=== PATIENT | female | born 1930 | race Caucasian/White ===

== ENCOUNTER 2022-04-23 07:19 | Inpatient (IN) | payer MEDICARE ==
[2022-04-23 08:19] LABS: #Lymphocytes 1.1 thou/uL (1.20-3.40); #Monocytes 2.4 thou/uL (0.11-0.59); #Neutrophils 15.2 thou/uL (1.40-6.50); %Eosinophils 0.1 % (0.0-10.0); %Lymphocytes 5.8 % (21.0-51.0); %Monocytes 12.9 % (0.0-10.0); %Neutrophils 81.1 % (42.0-75.0); Mean Corpuscular HGB CONC 30.3 g/dL (32.0-36.0); Mean Corpuscular Hemoglobin 30.2 pg (27.0-31.0); Mean Corpuscular Volume 99.7 fL (78.0-98.0); Mean Platelet Volume 7.9 fL (7.4-10.4); Platelet Count 247 thou/uL (130-400); RBC Distribution Width 12.6 % (11.5-14.5); Red Blood Cell (RBC) Count 5.63 mill/uL (4.20-5.40); White Blood Cell (WBC) Count 18.7 thou/uL (4.8-10.8)
[2022-04-23] MEDS ORDERED: Piperacillin/Tazobactam 3.375 GM VIAL ONE (08:30)
[2022-04-23 08:38] LABS: ALT (SGPT) 23 U/L (8-55); AST (SGOT) 23 U/L (5-34); Albumin 3.8 g/dL (3.4-4.8); Alkaline Phosphatase 118 U/L (40-110); Anion Gap 16 mmol/L (10-20); BUN (Urea Nitrogen) 25 mg/dL (9.8-20.1); Bilirubin, Total 3.2 mg/dL (0.2-1.2); CK (CPK) 841 U/L (29-168); Calc. Creatinine Clearance 0 mL/min (70-130); Calcium 9.3 mg/dL (7.8-10.44); Carbon Dioxide 25 mmol/L (23-31); Chloride 100 mmol/L (98-107); Globulin 3.6 g/dL (2.4-3.5); Glucose 144 mg/dL (83-110); Potassium 3.6 mmol/L (3.5-5.1); Protein, Total 7.4 g/dL (5.8-8.1); Sodium 137 mmol/L (136-145)
[2022-04-23] MEDS ORDERED: VANCOMYCIN 1.25 GM/250 ML BAG 1.25 GM in Premix Bag 1 BAG IVPB SCH (08:45)
[2022-04-23 08:54] LABS: INR-International Normal Ratio 1.3; Prothrombin Time 16.8 sec (12.0-14.7)
[2022-04-23 08:55] LABS: PTT 39.7 sec (22.9-36.1)
[2022-04-23] MEDS ORDERED: Boostrix 0.5 ML (Tdap) VIAL ONE (09:58)
[2022-04-23] MEDS ORDERED: Vancomycin 1 GM in Premix Bag 1 BAG IVPB SCH (10:15)
[2022-04-23] MEDS ORDERED: Bisacodyl 10 MG SUPP PR PRN (10:21)
[2022-04-23] MEDS ORDERED: Acetaminophen 325 MG TAB PO PRN (10:21)
[2022-04-23] MEDS ORDERED: Senokot S 8.6-50 MG TAB PO PRN (10:21)
[2022-04-23] MEDS ORDERED: Electrolyte Replacement Protocol 1 EACH FS SCH (10:45)
[2022-04-23 11:39] LABS: Bilirubin 1+ (Negative); Blood, Urine 2+ (Negative); Clarity Turbid (Clear); Glucose, Urine (Dipstick) 50 mg/dL (Negative); Ketone, Urine 10 mg/dL (Negative); Leukocyte 500 Leu/uL (Negative); Nitrite Negative (Negative); Protein, Urine (Dipstick) 300 mg/dL (Neg-Trace); Specific Gravity, Urine 1.037 (1.002-1.036); Squamous Epithelial 0-3 HPF (0-3); Urobilinogen Normal mg/dL (Less than 2); WBC/HPF Greater than 50 HPF (0-3); pH, Urine 6.5 (5.0-9.0)
[2022-04-23 11:40] LABS: Bacteria/HPF 1+ HPF (None Seen)
[2022-04-23] MEDS ORDERED: Multivitamins, Adult 10 ML, Folic Acid 1 MG, Thiamine HCl 100 MG in Dextrose 5 %-0.45 %... IV SCH (12:00)
[2022-04-23 12:52] VITALS: BMI 36.5
[2022-04-23] MEDS ORDERED: Aspirin 81 mg Enteric Coated Tablet PO SCH (13:00)
[2022-04-23] MEDS ORDERED: metroNIDAZOLE 500 MG in Premix Bag 1 BAG IVPB SCH (14:00)
[2022-04-23] MEDS: metroNIDAZOLE 500 MG in Premix Bag 1 BAG IVPB SCH ×2 (16:46→23:04)
[2022-04-23] MEDS: NS 0.9% w/ 20 MEQ KCL 1,000 ML/1,000 ML BAG IV SCH (19:15)
[2022-04-24] MEDS: NS 0.9% w/ 20 MEQ KCL 1,000 ML/1,000 ML BAG IV SCH ×2 (02:57→12:06)
[2022-04-24 05:10] LABS: #Lymphocytes 1.3 thou/uL (1.20-3.40); #Neutrophils 10.6 thou/uL (1.40-6.50); %Eosinophils 0.2 % (0.0-10.0); %Lymphocytes 9.2 % (21.0-51.0); %Monocytes 14.3 % (0.0-10.0); %Neutrophils 76.2 % (42.0-75.0); Hemoglobin 14.2 g/dL (12.0-16.0); Mean Corpuscular HGB CONC 32.1 g/dL (32.0-36.0); Mean Corpuscular Volume 99.7 fL (78.0-98.0); Mean Platelet Volume 7.7 fL (7.4-10.4); Platelet Count 213 thou/uL (130-400); RBC Distribution Width 12.4 % (11.5-14.5); Red Blood Cell (RBC) Count 4.44 mill/uL (4.20-5.40); White Blood Cell (WBC) Count 13.9 thou/uL (4.8-10.8)
[2022-04-24 05:43] LABS: ALT (SGPT) 32 U/L (8-55); AST (SGOT) 30 U/L (5-34); Albumin 2.8 g/dL (3.4-4.8); Alkaline Phosphatase 113 U/L (40-110); Anion Gap 12 mmol/L (10-20); BUN (Urea Nitrogen) 23 mg/dL (9.8-20.1); Bilirubin, Total 1.7 mg/dL (0.2-1.2); CK (CPK) 513 U/L (29-168); Calc. Creatinine Clearance 62 mL/min (70-130); Calcium 7.9 mg/dL (7.8-10.44); Carbon Dioxide 22 mmol/L (23-31); Chloride 108 mmol/L (98-107); Globulin 2.8 g/dL (2.4-3.5); Glucose 82 mg/dL (83-110); Magnesium 1.9 mg/dL (1.6-2.6); Potassium 3.7 mmol/L (3.5-5.1); Protein, Total 5.6 g/dL (5.8-8.1); Sodium 138 mmol/L (136-145)
[2022-04-24 06:23] LABS: Phosphorus 1.6 mg/dL (2.3-4.7)
[2022-04-24] MEDS: Acetaminophen 325 MG TAB PO PRN (06:39)
[2022-04-24] MEDS ORDERED: Magnesium 2 GM/50 ML(in water) 2 GM in Premix Bag 1 BAG IVPB SCH (09:00)
[2022-04-24] MEDS ORDERED: PHOS-NAK 1 PKT PACK PO SCH (10:00)
[2022-04-24] MEDS: Heparin 5,000 UNITS/ML VIAL SC SCH ×2 (10:42→20:15)
[2022-04-24] MEDS: Aspirin 81 mg Enteric Coated Tablet PO SCH (10:42)
[2022-04-24] MEDS: Saccharomyces boulardii 250 MG CAP PO SCH (10:43)
[2022-04-24] MEDS: PHOS-NAK 1 PKT PACK PO SCH ×2 (10:43→14:56)
[2022-04-24] MEDS: Vancomycin HCl 500 MG in Sodium Chloride 0.9% 100 ML IVPB SCH (12:07)
[2022-04-24] MEDS: metroNIDAZOLE 500 MG in Premix Bag 1 BAG IVPB SCH ×3 (12:07→23:54)
[2022-04-25 04:14] LABS: #Eosinphils 0.1 thou/uL (0.0-0.7); #Lymphocytes 1.2 thou/uL (1.20-3.40); #Monocytes 1.4 thou/uL (0.11-0.59); #Neutrophils 7.3 thou/uL (1.40-6.50); %Basophils 0.1 % (0.0-1.0); %Eosinophils 1.2 % (0.0-10.0); %Lymphocytes 11.7 % (21.0-51.0); %Monocytes 14.2 % (0.0-10.0); %Neutrophils 72.7 % (42.0-75.0); Hemoglobin 13.5 g/dL (12.0-16.0); Mean Corpuscular HGB CONC 33.6 g/dL (32.0-36.0); Mean Corpuscular Hemoglobin 32.6 pg (27.0-31.0); Mean Platelet Volume 7.3 fL (7.4-10.4); Platelet Count 229 thou/uL (130-400); RBC Distribution Width 12.4 % (11.5-14.5); Red Blood Cell (RBC) Count 4.14 mill/uL (4.20-5.40)
[2022-04-25 04:39] LABS: ALT (SGPT) 45 U/L (8-55); AST (SGOT) 34 U/L (5-34); Albumin 2.7 g/dL (3.4-4.8); Alkaline Phosphatase 158 U/L (40-110); Anion Gap 11 mmol/L (10-20); BUN (Urea Nitrogen) 14 mg/dL (9.8-20.1); Bilirubin, Total 1.3 mg/dL (0.2-1.2); Calc. Creatinine Clearance 72 mL/min (70-130); Carbon Dioxide 20 mmol/L (23-31); Chloride 110 mmol/L (98-107); Globulin 2.6 g/dL (2.4-3.5); Glucose 94 mg/dL (83-110); Potassium 3.8 mmol/L (3.5-5.1); Protein, Total 5.3 g/dL (5.8-8.1); Sodium 137 mmol/L (136-145)
[2022-04-25] MEDS ORDERED: Metoprolol Tartrate 50 MG TAB PO SCH (05:00)
[2022-04-25 05:18] LABS: Magnesium 2.1 mg/dL (1.6-2.6)
[2022-04-25] MEDS: Lidocaine 5% Patch TD SCH (08:51)
[2022-04-25] MEDS: Aspirin 81 mg Enteric Coated Tablet PO SCH (08:51)
[2022-04-25] MEDS: Heparin 5,000 UNITS/ML VIAL SC SCH (08:51)
[2022-04-25] MEDS: Acetaminophen 325 MG TAB PO PRN ×2 (08:51→21:57)
[2022-04-25] MEDS: Saccharomyces boulardii 250 MG CAP PO SCH (08:52)
[2022-04-25] MEDS: metroNIDAZOLE 500 MG in Premix Bag 1 BAG IVPB SCH ×2 (10:12→16:34)
[2022-04-25] MEDS: Vancomycin HCl 500 MG in Sodium Chloride 0.9% 100 ML IVPB SCH (11:16)
[2022-04-25] MEDS: Vancomycin 1 GM in Premix Bag 1 BAG IVPB SCH (11:17)
[2022-04-25] MEDS: Enoxaparin Sodium 40 MG/0.4 ML SYRINGE SC SCH (21:56)
[2022-04-25] MEDS: Transdermal Patch Removal TOP SCH (21:58)
[2022-04-25] MEDS: Metoprolol Tartrate 50 MG TAB PO SCH (21:58)
[2022-04-26] MEDS: metroNIDAZOLE 500 MG in Premix Bag 1 BAG IVPB SCH ×4 (00:51→23:46)
[2022-04-26] MEDS: Saccharomyces boulardii 250 MG CAP PO SCH (08:44)
[2022-04-26] MEDS: Metoprolol Tartrate 50 MG TAB PO SCH ×2 (08:44→20:25)
[2022-04-26] MEDS: Aspirin 81 mg Enteric Coated Tablet PO SCH (08:44)
[2022-04-26] MEDS: Vancomycin 1 GM in Premix Bag 1 BAG IVPB SCH (09:51)
[2022-04-26] MEDS: Lidocaine 5% Patch TD SCH (09:51)
[2022-04-26] MEDS: Enoxaparin Sodium 40 MG/0.4 ML SYRINGE SC SCH (20:24)
[2022-04-26] MEDS: Transdermal Patch Removal TOP SCH (20:25)
[2022-04-27 04:31] LABS: #Eosinphils 0.3 thou/uL (0.0-0.7); #Lymphocytes 1.6 thou/uL (1.20-3.40); #Monocytes 1.4 thou/uL (0.11-0.59); #Neutrophils 7.8 thou/uL (1.40-6.50); %Basophils 0.4 % (0.0-1.0); %Eosinophils 2.6 % (0.0-10.0); %Lymphocytes 14.3 % (21.0-51.0); %Monocytes 12.5 % (0.0-10.0); %Neutrophils 70.2 % (42.0-75.0); Hemoglobin 14.5 g/dL (12.0-16.0); Mean Corpuscular HGB CONC 32.6 g/dL (32.0-36.0); Mean Corpuscular Hemoglobin 31.9 pg (27.0-31.0); Mean Corpuscular Volume 97.7 fL (78.0-98.0); Platelet Count 310 thou/uL (130-400); RBC Distribution Width 12.6 % (11.5-14.5); Red Blood Cell (RBC) Count 4.55 mill/uL (4.20-5.40); White Blood Cell (WBC) Count 11.1 thou/uL (4.8-10.8)
[2022-04-27 04:54] LABS: Anion Gap 12 mmol/L (10-20); BUN (Urea Nitrogen) 14 mg/dL (9.8-20.1); CRP (Inflammatory) 8.09 mg/dL (= or < 0.5); Calc. Creatinine Clearance 72 mL/min (70-130); Calcium 8.7 mg/dL (7.8-10.44); Carbon Dioxide 28 mmol/L (23-31); Chloride 104 mmol/L (98-107); Glucose 104 mg/dL (83-110); Potassium 3.7 mmol/L (3.5-5.1); Sodium 140 mmol/L (136-145)
[2022-04-27] MEDS ORDERED: Iopamidol 370 76% 100 ML VIAL ONE (08:17)
[2022-04-27 09:16] LABS: Vancomycin, Trough 7.5 ug/mL
[2022-04-27] MEDS ORDERED: Vancomycin 1.5 GRAM/300 ML BAG 1.5 GM in Premix Bag 1 BAG IVPB SCH (10:00)
[2022-04-27] MEDS: metroNIDAZOLE 500 MG in Premix Bag 1 BAG IVPB SCH ×2 (10:51→17:14)
[2022-04-27] MEDS: Lidocaine 5% Patch TD SCH (10:51)
[2022-04-27] MEDS: Saccharomyces boulardii 250 MG CAP PO SCH (10:53)
[2022-04-27] MEDS: Aspirin 81 mg Enteric Coated Tablet PO SCH (10:53)
[2022-04-27] MEDS: Metoprolol Tartrate 50 MG TAB PO SCH ×2 (10:53→22:06)
[2022-04-27] MEDS: Colchicine 0.3 MG TAB PO SCH (21:55)
[2022-04-27] MEDS: Enoxaparin Sodium 40 MG/0.4 ML SYRINGE SC SCH (21:56)
[2022-04-27] MEDS: Acetaminophen 325 MG TAB PO PRN (22:00)
[2022-04-27] MEDS: Transdermal Patch Removal TOP SCH (22:03)
[2022-04-28] MEDS: metroNIDAZOLE 500 MG in Premix Bag 1 BAG IVPB SCH ×2 (00:02→08:22)
[2022-04-28 07:20] LABS: #Basophils 0.1 thou/uL (0.0-0.2); #Eosinphils 0.5 thou/uL (0.0-0.7); #Lymphocytes 1.3 thou/uL (1.20-3.40); #Monocytes 1.2 thou/uL (0.11-0.59); #Neutrophils 7.1 thou/uL (1.40-6.50); %Basophils 0.5 % (0.0-1.0); %Eosinophils 4.7 % (0.0-10.0); %Lymphocytes 13.1 % (21.0-51.0); %Monocytes 12.1 % (0.0-10.0); %Neutrophils 69.6 % (42.0-75.0); Mean Corpuscular Hemoglobin 32.2 pg (27.0-31.0); Mean Platelet Volume 6.9 fL (7.4-10.4); Platelet Count 299 thou/uL (130-400); RBC Distribution Width 12.6 % (11.5-14.5); Red Blood Cell (RBC) Count 4.35 mill/uL (4.20-5.40); White Blood Cell (WBC) Count 10.2 thou/uL (4.8-10.8)
[2022-04-28 07:43] LABS: Anion Gap 11 mmol/L (10-20); BUN (Urea Nitrogen) 16 mg/dL (9.8-20.1); Calc. Creatinine Clearance 62 mL/min (70-130); Calcium 8.3 mg/dL (7.8-10.44); Carbon Dioxide 27 mmol/L (23-31); Chloride 103 mmol/L (98-107); Glucose 93 mg/dL (83-110); Potassium 3.6 mmol/L (3.5-5.1); Sodium 137 mmol/L (136-145)
[2022-04-28] MEDS: Lidocaine 5% Patch TD SCH (08:22)
[2022-04-28] MEDS: Metoprolol Tartrate 50 MG TAB PO SCH ×2 (08:23→21:15)
[2022-04-28] MEDS: Saccharomyces boulardii 250 MG CAP PO SCH (08:23)
[2022-04-28] MEDS: Aspirin 81 mg Enteric Coated Tablet PO SCH (08:23)
[2022-04-28] MEDS: Colchicine 0.3 MG TAB PO SCH ×2 (08:23→21:14)
[2022-04-28] MEDS: Diclofenac 1% 100 GM GEL TP SCH ×4 (13:21→21:15)
[2022-04-28] MEDS: Amoxicillin/Potassium Clav 875 MG TAB PO SCH (21:14)
[2022-04-28] MEDS: Doxycycline 100 MG CAP PO SCH (21:15)
[2022-04-28] MEDS: Enoxaparin Sodium 40 MG/0.4 ML SYRINGE SC SCH (21:15)
[2022-04-28] MEDS: Transdermal Patch Removal TOP SCH (21:45)
[2022-04-29] MEDS: traMADol HCl 50 MG TAB PO PRN (05:28)
[2022-04-29 06:29] LABS: #Eosinphils 0.5 thou/uL (0.0-0.7); #Lymphocytes 1.5 thou/uL (1.20-3.40); #Monocytes 1.2 thou/uL (0.11-0.59); #Neutrophils 7.1 thou/uL (1.40-6.50); %Basophils 0.4 % (0.0-1.0); %Eosinophils 4.5 % (0.0-10.0); %Lymphocytes 14.3 % (21.0-51.0); %Monocytes 11.8 % (0.0-10.0); %Neutrophils 68.9 % (42.0-75.0); Hemoglobin 15.2 g/dL (12.0-16.0); Mean Corpuscular HGB CONC 32.4 g/dL (32.0-36.0); Mean Corpuscular Hemoglobin 32.3 pg (27.0-31.0); Mean Corpuscular Volume 99.6 fL (78.0-98.0); Platelet Count 334 thou/uL (130-400); RBC Distribution Width 12.8 % (11.5-14.5); Red Blood Cell (RBC) Count 4.69 mill/uL (4.20-5.40); White Blood Cell (WBC) Count 10.3 thou/uL (4.8-10.8)
[2022-04-29 06:57] LABS: ALT (SGPT) 43 U/L (8-55); AST (SGOT) 33 U/L (5-34); Albumin 2.9 g/dL (3.4-4.8); Alkaline Phosphatase 193 U/L (40-110); Anion Gap 12 mmol/L (10-20); BUN (Urea Nitrogen) 12 mg/dL (9.8-20.1); Bilirubin, Total 0.7 mg/dL (0.2-1.2); CK (CPK) 32 U/L (29-168); CRP (Inflammatory) 4.54 mg/dL (= or < 0.5); Calc. Creatinine Clearance 62 mL/min (70-130); Calcium 8.8 mg/dL (7.8-10.44); Carbon Dioxide 27 mmol/L (23-31); Chloride 104 mmol/L (98-107); Globulin 2.8 g/dL (2.4-3.5); Glucose 135 mg/dL (83-110); Potassium 3.1 mmol/L (3.5-5.1); Protein, Total 5.7 g/dL (5.8-8.1); Sodium 140 mmol/L (136-145); Uric Acid 6.8 mg/dL (2.6-6.0)
[2022-04-29] MEDS ORDERED: Potassium Chloride 20 MEQ TAB PO SCH (09:00)
[2022-04-29] MEDS ORDERED: Fish Oil 1,000 MG CAP PO SCH (09:00)
[2022-04-29] MEDS: Lidocaine 5% Patch TD SCH (09:34)
[2022-04-29] MEDS: Aspirin 81 mg Enteric Coated Tablet PO SCH (09:35)
[2022-04-29] MEDS: Metoprolol Tartrate 50 MG TAB PO SCH ×2 (09:35→20:29)
[2022-04-29] MEDS: diphenhydrAMINE 25 MG CAP PO SCH (09:35)
[2022-04-29] MEDS: Colchicine 0.3 MG TAB PO SCH ×2 (09:35→20:29)
[2022-04-29] MEDS: Cholecalciferol 1,000 UNITS (25 MCG) TAB PO SCH (09:36)
[2022-04-29] MEDS: Doxycycline 100 MG CAP PO SCH ×2 (09:36→20:29)
[2022-04-29] MEDS: Saccharomyces boulardii 250 MG CAP PO SCH (09:36)
[2022-04-29] MEDS: LACTINEX 1 TAB PO SCH (09:36)
[2022-04-29] MEDS: Amoxicillin/Potassium Clav 875 MG TAB PO SCH ×2 (09:36→20:29)
[2022-04-29] MEDS: Cyanocobalamin (Vitamin B-12) 1,000 MCG TAB PO SCH (09:36)
[2022-04-29] MEDS: Diclofenac 1% 100 GM GEL TP SCH ×4 (09:40→20:31)
[2022-04-29] MEDS: Fish Oil 1,000 MG CAP PO SCH (09:40)
[2022-04-29] MEDS: Magnesium Oxide 400 MG TAB PO SCH (10:17)
[2022-04-29] MEDS: Enoxaparin Sodium 40 MG/0.4 ML SYRINGE SC SCH (20:29)
[2022-04-29] MEDS: Transdermal Patch Removal TOP SCH (20:32)
[2022-04-30 08:14] LABS: Anion Gap 12 mmol/L (10-20); BUN (Urea Nitrogen) 18 mg/dL (9.8-20.1); Calc. Creatinine Clearance 57 mL/min (70-130); Calcium 8.4 mg/dL (7.8-10.44); Carbon Dioxide 26 mmol/L (23-31); Chloride 107 mmol/L (98-107); Glucose 88 mg/dL (83-110); Potassium 3.9 mmol/L (3.5-5.1); Sodium 141 mmol/L (136-145)
[2022-04-30] MEDS: Lidocaine 5% Patch TD SCH (09:03)
[2022-04-30] MEDS: Aspirin 81 mg Enteric Coated Tablet PO SCH (09:04)
[2022-04-30] MEDS: Metoprolol Tartrate 50 MG TAB PO SCH ×2 (09:04→21:42)
[2022-04-30] MEDS: Saccharomyces boulardii 250 MG CAP PO SCH (09:04)
[2022-04-30] MEDS: Amoxicillin/Potassium Clav 875 MG TAB PO SCH ×2 (09:04→21:42)
[2022-04-30] MEDS: LACTINEX 1 TAB PO SCH (09:04)
[2022-04-30] MEDS: Cyanocobalamin (Vitamin B-12) 1,000 MCG TAB PO SCH (09:04)
[2022-04-30] MEDS: Doxycycline 100 MG CAP PO SCH ×2 (09:04→21:42)
[2022-04-30] MEDS: Fish Oil 1,000 MG CAP PO SCH (09:05)
[2022-04-30] MEDS: Cholecalciferol 1,000 UNITS (25 MCG) TAB PO SCH (09:05)
[2022-04-30] MEDS: diphenhydrAMINE 25 MG CAP PO SCH (09:05)
[2022-04-30] MEDS: Colchicine 0.3 MG TAB PO SCH ×2 (09:05→21:42)
[2022-04-30] MEDS: Diclofenac 1% 100 GM GEL TP SCH ×5 (09:06→21:43)
[2022-04-30] MEDS: Magnesium Oxide 400 MG TAB PO SCH (09:06)
[2022-04-30] MEDS: Enoxaparin Sodium 40 MG/0.4 ML SYRINGE SC SCH (21:42)
[2022-04-30] MEDS: Transdermal Patch Removal TOP SCH (21:44)
[2022-05-01] MEDS: traMADol HCl 50 MG TAB PO PRN (04:07)
[2022-05-01] MEDS: Lidocaine 5% Patch TD SCH (09:01)
[2022-05-01] MEDS: Doxycycline 100 MG CAP PO SCH ×2 (09:01→20:31)
[2022-05-01] MEDS: diphenhydrAMINE 25 MG CAP PO SCH (09:02)
[2022-05-01] MEDS: LACTINEX 1 TAB PO SCH (09:02)
[2022-05-01] MEDS: Colchicine 0.3 MG TAB PO SCH ×2 (09:02→20:26)
[2022-05-01] MEDS: Amoxicillin/Potassium Clav 875 MG TAB PO SCH ×2 (09:02→20:26)
[2022-05-01] MEDS: Magnesium Oxide 400 MG TAB PO SCH (09:02)
[2022-05-01] MEDS: Saccharomyces boulardii 250 MG CAP PO SCH (09:02)
[2022-05-01] MEDS: Metoprolol Tartrate 50 MG TAB PO SCH ×2 (09:02→20:26)
[2022-05-01] MEDS: Aspirin 81 mg Enteric Coated Tablet PO SCH (09:03)
[2022-05-01] MEDS: Fish Oil 1,000 MG CAP PO SCH (09:03)
[2022-05-01] MEDS: Cyanocobalamin (Vitamin B-12) 1,000 MCG TAB PO SCH (09:03)
[2022-05-01] MEDS: Cholecalciferol 1,000 UNITS (25 MCG) TAB PO SCH (09:03)
[2022-05-01] MEDS: Diclofenac 1% 100 GM GEL TP SCH ×4 (09:03→20:31)
[2022-05-01] MEDS: Enoxaparin Sodium 40 MG/0.4 ML SYRINGE SC SCH (20:26)
[2022-05-01] MEDS: Transdermal Patch Removal TOP SCH (20:27)
[2022-05-02] MEDS: traMADol HCl 50 MG TAB PO PRN ×2 (05:24→20:33)
[2022-05-02] MEDS: Amoxicillin/Potassium Clav 875 MG TAB PO SCH ×2 (08:22→20:32)
[2022-05-02] MEDS: Colchicine 0.3 MG TAB PO SCH ×2 (08:22→20:32)
[2022-05-02] MEDS: Metoprolol Tartrate 50 MG TAB PO SCH (08:22)
[2022-05-02] MEDS: LACTINEX 1 TAB PO SCH (08:22)
[2022-05-02] MEDS: Magnesium Oxide 400 MG TAB PO SCH (08:22)
[2022-05-02] MEDS: Cholecalciferol 1,000 UNITS (25 MCG) TAB PO SCH (08:22)
[2022-05-02] MEDS: diphenhydrAMINE 25 MG CAP PO SCH (08:22)
[2022-05-02] MEDS: Fish Oil 1,000 MG CAP PO SCH (08:23)
[2022-05-02] MEDS: Diclofenac 1% 100 GM GEL TP SCH ×4 (08:23→20:31)
[2022-05-02] MEDS: Cyanocobalamin (Vitamin B-12) 1,000 MCG TAB PO SCH (08:23)
[2022-05-02] MEDS: Saccharomyces boulardii 250 MG CAP PO SCH (08:23)
[2022-05-02] MEDS: Aspirin 81 mg Enteric Coated Tablet PO SCH (08:23)
[2022-05-02] MEDS: Acetaminophen 325 MG TAB PO PRN (08:25)
[2022-05-02] MEDS: Lidocaine 5% Patch TD SCH (09:52)
[2022-05-02] MEDS: Doxycycline 100 MG CAP PO SCH ×2 (09:52→20:33)
[2022-05-02] MEDS ORDERED: Sodium Chloride 0.9% 1,000 ML IV SCH (13:15)
[2022-05-02] MEDS: Enoxaparin Sodium 40 MG/0.4 ML SYRINGE SC SCH (20:32)
[2022-05-02] MEDS: Transdermal Patch Removal TOP SCH (20:33)
[2022-05-03] MEDS: Acetaminophen 325 MG TAB PO PRN ×2 (00:56→23:08)
[2022-05-03 06:55] LABS: #Basophils 0.1 thou/uL (0.0-0.2); #Eosinphils 0.3 thou/uL (0.0-0.7); #Lymphocytes 2.4 thou/uL (1.20-3.40); #Neutrophils 7.6 thou/uL (1.40-6.50); %Basophils 0.6 % (0.0-1.0); %Eosinophils 2.6 % (0.0-10.0); %Lymphocytes 20.7 % (21.0-51.0); %Monocytes 8.8 % (0.0-10.0); %Neutrophils 67.2 % (42.0-75.0); Hemoglobin 14.4 g/dL (12.0-16.0); Mean Corpuscular HGB CONC 32.8 g/dL (32.0-36.0); Mean Corpuscular Hemoglobin 32.5 pg (27.0-31.0); Mean Corpuscular Volume 99.1 fL (78.0-98.0); Mean Platelet Volume 6.8 fL (7.4-10.4); Platelet Count 331 thou/uL (130-400); RBC Distribution Width 13.2 % (11.5-14.5); Red Blood Cell (RBC) Count 4.43 mill/uL (4.20-5.40); White Blood Cell (WBC) Count 11.4 thou/uL (4.8-10.8)
[2022-05-03 07:23] LABS: Anion Gap 12 mmol/L (10-20); BUN (Urea Nitrogen) 12 mg/dL (9.8-20.1); Calc. Creatinine Clearance 66 mL/min (70-130); Calcium 8.3 mg/dL (7.8-10.44); Carbon Dioxide 27 mmol/L (23-31); Chloride 106 mmol/L (98-107); Glucose 88 mg/dL (83-110); Magnesium 1.8 mg/dL (1.6-2.6); Potassium 3.5 mmol/L (3.5-5.1); Sodium 141 mmol/L (136-145)
[2022-05-03] MEDS ORDERED: Magnesium 2 GM/50 ML(in water) 2 GM in Premix Bag 1 BAG IVPB SCH (08:00)
[2022-05-03] MEDS ORDERED: Potassium Chloride 20 MEQ TAB PO SCH (08:00)
[2022-05-03] MEDS: Doxycycline 100 MG CAP PO SCH ×2 (09:11→20:51)
[2022-05-03] MEDS: Lidocaine 5% Patch TD SCH (09:11)
[2022-05-03] MEDS: Polyethylene Glycol 3350 17 GM Packet PO SCH (09:11)
[2022-05-03] MEDS: Saccharomyces boulardii 250 MG CAP PO SCH (09:14)
[2022-05-03] MEDS: Diclofenac 1% 100 GM GEL TP SCH ×4 (09:15→20:51)
[2022-05-03] MEDS: Aspirin 81 mg Enteric Coated Tablet PO SCH (09:15)
[2022-05-03] MEDS: Amoxicillin/Potassium Clav 875 MG TAB PO SCH ×2 (09:15→20:51)
[2022-05-03] MEDS: Colchicine 0.3 MG TAB PO SCH ×2 (09:15→20:51)
[2022-05-03] MEDS: Fish Oil 1,000 MG CAP PO SCH (09:15)
[2022-05-03] MEDS: Cholecalciferol 1,000 UNITS (25 MCG) TAB PO SCH (09:15)
[2022-05-03] MEDS: Cyanocobalamin (Vitamin B-12) 1,000 MCG TAB PO SCH (09:15)
[2022-05-03] MEDS: Magnesium Oxide 400 MG TAB PO SCH (09:15)
[2022-05-03] MEDS: diphenhydrAMINE 25 MG CAP PO SCH (09:15)
[2022-05-03] MEDS: LACTINEX 1 TAB PO SCH (09:15)
[2022-05-03] MEDS: traMADol HCl 50 MG TAB PO PRN (20:48)
[2022-05-03] MEDS: Enoxaparin Sodium 40 MG/0.4 ML SYRINGE SC SCH (20:50)
[2022-05-03] MEDS: Transdermal Patch Removal TOP SCH (20:51)
[2022-05-04] MEDS: traMADol HCl 50 MG TAB PO PRN ×2 (05:41→21:12)
[2022-05-04] MEDS: Aspirin 81 mg Enteric Coated Tablet PO SCH (08:19)
[2022-05-04] MEDS: Polyethylene Glycol 3350 17 GM Packet PO SCH (08:19)
[2022-05-04] MEDS: Lidocaine 5% Patch TD SCH (08:19)
[2022-05-04] MEDS: Amoxicillin/Potassium Clav 875 MG TAB PO SCH ×2 (08:19→21:11)
[2022-05-04] MEDS: Colchicine 0.3 MG TAB PO SCH ×2 (08:20→21:11)
[2022-05-04] MEDS: Doxycycline 100 MG CAP PO SCH ×2 (08:20→21:10)
[2022-05-04] MEDS: Cholecalciferol 1,000 UNITS (25 MCG) TAB PO SCH (08:20)
[2022-05-04] MEDS: Saccharomyces boulardii 250 MG CAP PO SCH (08:20)
[2022-05-04] MEDS: Fish Oil 1,000 MG CAP PO SCH (08:20)
[2022-05-04] MEDS: Cyanocobalamin (Vitamin B-12) 1,000 MCG TAB PO SCH (08:20)
[2022-05-04] MEDS: Magnesium Oxide 400 MG TAB PO SCH (08:20)
[2022-05-04] MEDS: diphenhydrAMINE 25 MG CAP PO SCH (08:20)
[2022-05-04] MEDS: Diclofenac 1% 100 GM GEL TP SCH ×4 (08:22→21:12)
[2022-05-04] MEDS: LACTINEX 1 TAB PO SCH (13:02)
[2022-05-04] MEDS: Enoxaparin Sodium 40 MG/0.4 ML SYRINGE SC SCH (21:12)
[2022-05-04] MEDS: Transdermal Patch Removal TOP SCH (21:12)
[2022-05-04] MEDS: Acetaminophen 325 MG TAB PO PRN (21:13)
[2022-05-05 09:06] LABS: #Basophils 0.1 thou/uL (0.0-0.2); #Eosinphils 0.2 thou/uL (0.0-0.7); #Lymphocytes 2.4 thou/uL (1.20-3.40); #Monocytes 0.9 thou/uL (0.11-0.59); #Neutrophils 5.4 thou/uL (1.40-6.50); %Basophils 0.9 % (0.0-1.0); %Eosinophils 2.5 % (0.0-10.0); %Monocytes 9.7 % (0.0-10.0); %Neutrophils 59.8 % (42.0-75.0); Hemoglobin 15.8 g/dL (12.0-16.0); Mean Corpuscular HGB CONC 31.9 g/dL (32.0-36.0); Mean Corpuscular Hemoglobin 32.7 pg (27.0-31.0); Mean Platelet Volume 7.3 fL (7.4-10.4); Platelet Count 312 thou/uL (130-400); RBC Distribution Width 13.5 % (11.5-14.5); Red Blood Cell (RBC) Count 4.83 mill/uL (4.20-5.40)
[2022-05-05 09:24] LABS: Anion Gap 15 mmol/L (10-20); BUN (Urea Nitrogen) 13 mg/dL (9.8-20.1); Calc. Creatinine Clearance 63 mL/min (70-130); Calcium 9.2 mg/dL (7.8-10.44); Carbon Dioxide 25 mmol/L (23-31); Chloride 103 mmol/L (98-107); Glucose 96 mg/dL (83-110); Sodium 139 mmol/L (136-145)
[2022-05-05] MEDS: Magnesium Oxide 400 MG TAB PO SCH (09:31)
[2022-05-05] MEDS: Cholecalciferol 1,000 UNITS (25 MCG) TAB PO SCH (09:31)
[2022-05-05] MEDS: Aspirin 81 mg Enteric Coated Tablet PO SCH (09:31)
[2022-05-05] MEDS: Colchicine 0.3 MG TAB PO SCH ×2 (09:31→20:52)
[2022-05-05] MEDS: diphenhydrAMINE 25 MG CAP PO SCH (09:32)
[2022-05-05] MEDS: LACTINEX 1 TAB PO SCH (09:32)
[2022-05-05] MEDS: Saccharomyces boulardii 250 MG CAP PO SCH (09:36)
[2022-05-05] MEDS: Cyanocobalamin (Vitamin B-12) 1,000 MCG TAB PO SCH (09:36)
[2022-05-05] MEDS: Amoxicillin/Potassium Clav 875 MG TAB PO SCH ×2 (09:36→20:53)
[2022-05-05] MEDS: Doxycycline 100 MG CAP PO SCH ×2 (09:36→20:53)
[2022-05-05] MEDS: Fish Oil 1,000 MG CAP PO SCH (09:36)
[2022-05-05] MEDS: Polyethylene Glycol 3350 17 GM Packet PO SCH (09:37)
[2022-05-05] MEDS: Lidocaine 5% Patch TD SCH (09:37)
[2022-05-05] MEDS: Diclofenac 1% 100 GM GEL TP SCH ×4 (11:46→22:41)
[2022-05-05] MEDS: Enoxaparin Sodium 40 MG/0.4 ML SYRINGE SC SCH (20:52)
[2022-05-05] MEDS: Docusate 100 MG CAP PO SCH (20:52)
[2022-05-05] MEDS: Transdermal Patch Removal TOP SCH (20:54)
[2022-05-05] MEDS: traMADol HCl 50 MG TAB PO PRN (22:40)
[2022-05-06] MEDS: LACTINEX 1 TAB PO SCH (10:30)
[2022-05-06] MEDS: Aspirin 81 mg Enteric Coated Tablet PO SCH (10:30)
[2022-05-06] MEDS: Amoxicillin/Potassium Clav 875 MG TAB PO SCH (10:30)
[2022-05-06] MEDS: Colchicine 0.3 MG TAB PO SCH ×2 (10:31→21:29)
[2022-05-06] MEDS: Cholecalciferol 1,000 UNITS (25 MCG) TAB PO SCH (10:31)
[2022-05-06] MEDS: Diclofenac 1% 100 GM GEL TP SCH ×4 (10:32→21:29)
[2022-05-06] MEDS: diphenhydrAMINE 25 MG CAP PO SCH (10:32)
[2022-05-06] MEDS: Cyanocobalamin (Vitamin B-12) 1,000 MCG TAB PO SCH (10:32)
[2022-05-06] MEDS: Lidocaine 5% Patch TD SCH (10:34)
[2022-05-06] MEDS: Doxycycline 100 MG CAP PO SCH (10:34)
[2022-05-06] MEDS: Fish Oil 1,000 MG CAP PO SCH (10:34)
[2022-05-06] MEDS: Docusate 100 MG CAP PO SCH ×2 (10:34→21:22)
[2022-05-06] MEDS: Magnesium Oxide 400 MG TAB PO SCH (10:35)
[2022-05-06] MEDS: Polyethylene Glycol 3350 17 GM Packet PO SCH (10:36)
[2022-05-06] MEDS: Saccharomyces boulardii 250 MG CAP PO SCH (10:52)
[2022-05-06] MEDS ORDERED: Methyl Salicylate/Menthol 85 GM TUBE TOP PRN (13:21)
[2022-05-06] MEDS: traMADol HCl 50 MG TAB PO PRN (21:29)
[2022-05-06] MEDS: Transdermal Patch Removal TOP SCH (21:30)
[2022-05-06] MEDS: Enoxaparin Sodium 40 MG/0.4 ML SYRINGE SC SCH (21:30)
[2022-05-07] MEDS: Polyethylene Glycol 3350 17 GM Packet PO SCH (09:00)
[2022-05-07] MEDS: diphenhydrAMINE 25 MG CAP PO SCH (09:00)
[2022-05-07] MEDS: Magnesium Oxide 400 MG TAB PO SCH (09:00)
[2022-05-07] MEDS: Cholecalciferol 1,000 UNITS (25 MCG) TAB PO SCH (09:00)
[2022-05-07] MEDS: Colchicine 0.3 MG TAB PO SCH ×2 (09:01→21:04)
[2022-05-07] MEDS: Fish Oil 1,000 MG CAP PO SCH (09:01)
[2022-05-07] MEDS: traMADol HCl 50 MG TAB PO PRN (09:01)
[2022-05-07] MEDS: Cyanocobalamin (Vitamin B-12) 1,000 MCG TAB PO SCH (09:01)
[2022-05-07] MEDS: Diclofenac 1% 100 GM GEL TP SCH ×4 (09:01→21:05)
[2022-05-07] MEDS: Docusate 100 MG CAP PO SCH ×2 (09:01→21:07)
[2022-05-07] MEDS: Aspirin 81 mg Enteric Coated Tablet PO SCH (09:01)
[2022-05-07] MEDS: Saccharomyces boulardii 250 MG CAP PO SCH (09:01)
[2022-05-07] MEDS: Lidocaine 5% Patch TD SCH (09:02)
[2022-05-07] MEDS: LACTINEX 1 TAB PO SCH (09:18)
[2022-05-07] MEDS: Enoxaparin Sodium 40 MG/0.4 ML SYRINGE SC SCH (21:07)
[2022-05-07] MEDS: Senokot S 8.6-50 MG TAB PO SCH (21:08)
[2022-05-07] MEDS: Transdermal Patch Removal TOP SCH (21:26)
[2022-05-08] MEDS: LACTINEX 1 TAB PO SCH (09:02)
[2022-05-08] MEDS: Polyethylene Glycol 3350 17 GM Packet PO SCH (09:03)
[2022-05-08] MEDS: Colchicine 0.3 MG TAB PO SCH ×2 (09:03→19:38)
[2022-05-08] MEDS: Aspirin 81 mg Enteric Coated Tablet PO SCH (09:03)
[2022-05-08] MEDS: Docusate 100 MG CAP PO SCH ×2 (09:03→19:38)
[2022-05-08] MEDS: diphenhydrAMINE 25 MG CAP PO SCH (09:03)
[2022-05-08] MEDS: Senokot S 8.6-50 MG TAB PO SCH ×2 (09:03→19:39)
[2022-05-08] MEDS: Saccharomyces boulardii 250 MG CAP PO SCH (09:03)
[2022-05-08] MEDS: Cyanocobalamin (Vitamin B-12) 1,000 MCG TAB PO SCH (09:03)
[2022-05-08] MEDS: Fish Oil 1,000 MG CAP PO SCH (09:03)
[2022-05-08] MEDS: Cholecalciferol 1,000 UNITS (25 MCG) TAB PO SCH (09:03)
[2022-05-08] MEDS: Magnesium Oxide 400 MG TAB PO SCH (09:03)
[2022-05-08] MEDS: Lidocaine 5% Patch TD SCH (09:04)
[2022-05-08] MEDS: traMADol HCl 50 MG TAB PO PRN ×2 (09:04→17:00)
[2022-05-08] MEDS: Diclofenac 1% 100 GM GEL TP SCH ×4 (09:05→19:44)
[2022-05-08] MEDS ORDERED: MD-Gastroview 120 ML BOT ONE (09:53)
[2022-05-08] MEDS: Enoxaparin Sodium 40 MG/0.4 ML SYRINGE SC SCH (19:38)
[2022-05-08] MEDS: Acetaminophen 325 MG TAB PO PRN (19:39)
[2022-05-08] MEDS: Calcium Carbonate 500 MG ChewTAB PO PRN (19:39)
[2022-05-08] MEDS: Transdermal Patch Removal TOP SCH (22:36)
[2022-05-09] MEDS: Aspirin 81 mg Enteric Coated Tablet PO SCH (09:43)
[2022-05-09] MEDS: Saccharomyces boulardii 250 MG CAP PO SCH (09:43)
[2022-05-09] MEDS: Colchicine 0.3 MG TAB PO SCH ×2 (09:43→21:13)
[2022-05-09] MEDS: LACTINEX 1 TAB PO SCH (09:43)
[2022-05-09] MEDS: Polyethylene Glycol 3350 17 GM Packet PO SCH (09:43)
[2022-05-09] MEDS: Tamsulosin HCl 0.4 MG CAP PO SCH (09:43)
[2022-05-09] MEDS: diphenhydrAMINE 25 MG CAP PO SCH (09:44)
[2022-05-09] MEDS: Cholecalciferol 1,000 UNITS (25 MCG) TAB PO SCH (09:44)
[2022-05-09] MEDS: Cyanocobalamin (Vitamin B-12) 1,000 MCG TAB PO SCH (09:44)
[2022-05-09] MEDS: Fish Oil 1,000 MG CAP PO SCH (09:44)
[2022-05-09] MEDS: Senokot S 8.6-50 MG TAB PO SCH ×2 (09:44→21:13)
[2022-05-09] MEDS: Docusate 100 MG CAP PO SCH ×2 (09:44→21:13)
[2022-05-09] MEDS: Magnesium Oxide 400 MG TAB PO SCH (09:44)
[2022-05-09] MEDS: Diclofenac 1% 100 GM GEL TP SCH ×4 (09:45→21:15)
[2022-05-09] MEDS: Oxybutynin 5 MG TAB PO SCH (09:58)
[2022-05-09] MEDS: Lidocaine 5% Patch TD SCH (09:58)
[2022-05-09 12:50] LABS: #Basophils 0.1 thou/uL (0.0-0.2); #Eosinphils 0.2 thou/uL (0.0-0.7); #Lymphocytes 1.6 thou/uL (1.20-3.40); #Monocytes 0.9 thou/uL (0.11-0.59); #Neutrophils 5.2 thou/uL (1.40-6.50); %Basophils 0.7 % (0.0-1.0); %Eosinophils 2.3 % (0.0-10.0); %Lymphocytes 19.7 % (21.0-51.0); %Monocytes 11.3 % (0.0-10.0); %Neutrophils 65.9 % (42.0-75.0); Hemoglobin 15.7 g/dL (12.0-16.0); Mean Corpuscular HGB CONC 31.8 g/dL (32.0-36.0); Mean Corpuscular Hemoglobin 32.1 pg (27.0-31.0); Mean Platelet Volume 7.9 fL (7.4-10.4); Platelet Count 268 thou/uL (130-400); RBC Distribution Width 13.2 % (11.5-14.5); Red Blood Cell (RBC) Count 4.88 mill/uL (4.20-5.40); White Blood Cell (WBC) Count 7.9 thou/uL (4.8-10.8)
[2022-05-09 13:18] LABS: Anion Gap 13 mmol/L (10-20); BUN (Urea Nitrogen) 21 mg/dL (9.8-20.1); Calc. Creatinine Clearance 61 mL/min (70-130); Calcium 9.4 mg/dL (7.8-10.44); Carbon Dioxide 32 mmol/L (23-31); Chloride 101 mmol/L (98-107); Glucose 104 mg/dL (83-110); Sodium 142 mmol/L (136-145)
[2022-05-09] MEDS: traMADol HCl 50 MG TAB PO PRN (21:08)
[2022-05-09] MEDS: Calcium Carbonate 500 MG ChewTAB PO PRN (21:08)
[2022-05-09] MEDS: Acetaminophen 325 MG TAB PO PRN (21:13)
[2022-05-09] MEDS: Enoxaparin Sodium 40 MG/0.4 ML SYRINGE SC SCH (21:14)
[2022-05-09] MEDS: Transdermal Patch Removal TOP SCH (21:17)
[2022-05-10 06:17] LABS: #Basophils 0.1 thou/uL (0.0-0.2); #Eosinphils 0.2 thou/uL (0.0-0.7); #Lymphocytes 2.5 thou/uL (1.20-3.40); #Monocytes 0.9 thou/uL (0.11-0.59); #Neutrophils 4.2 thou/uL (1.40-6.50); %Basophils 0.8 % (0.0-1.0); %Eosinophils 2.9 % (0.0-10.0); %Lymphocytes 32.2 % (21.0-51.0); %Monocytes 11.3 % (0.0-10.0); %Neutrophils 52.8 % (42.0-75.0); Hemoglobin 14.5 g/dL (12.0-16.0); Mean Corpuscular HGB CONC 31.9 g/dL (32.0-36.0); Mean Corpuscular Hemoglobin 32.2 pg (27.0-31.0); Platelet Count 255 thou/uL (130-400); RBC Distribution Width 13.2 % (11.5-14.5); White Blood Cell (WBC) Count 7.9 thou/uL (4.8-10.8)
[2022-05-10 06:36] LABS: Anion Gap 12 mmol/L (10-20); BUN (Urea Nitrogen) 22 mg/dL (9.8-20.1); Calc. Creatinine Clearance 61 mL/min (70-130); Calcium 9.3 mg/dL (7.8-10.44); Carbon Dioxide 31 mmol/L (23-31); Chloride 101 mmol/L (98-107); Glucose 103 mg/dL (83-110); Potassium 3.7 mmol/L (3.5-5.1); Sodium 140 mmol/L (136-145)
[2022-05-10 08:07] VITALS: BP 119/75; TEMP 97.7
[2022-05-10] MEDS: Fish Oil 1,000 MG CAP PO SCH (09:22)
[2022-05-10] MEDS: Colchicine 0.3 MG TAB PO SCH (09:22)
[2022-05-10] MEDS: Cyanocobalamin (Vitamin B-12) 1,000 MCG TAB PO SCH (09:22)
[2022-05-10] MEDS: diphenhydrAMINE 25 MG CAP PO SCH (09:22)
[2022-05-10] MEDS: Tamsulosin HCl 0.4 MG CAP PO SCH (09:23)
[2022-05-10] MEDS: Aspirin 81 mg Enteric Coated Tablet PO SCH (09:23)
[2022-05-10] MEDS: traMADol HCl 50 MG TAB PO PRN (09:23)
[2022-05-10] MEDS: Oxybutynin 5 MG TAB PO SCH (09:23)
[2022-05-10] MEDS: Magnesium Oxide 400 MG TAB PO SCH (09:23)
[2022-05-10] MEDS: Cholecalciferol 1,000 UNITS (25 MCG) TAB PO SCH (09:23)
[2022-05-10] MEDS: Saccharomyces boulardii 250 MG CAP PO SCH (09:23)
[2022-05-10] MEDS: LACTINEX 1 TAB PO SCH (09:24)
[2022-05-10] MEDS: Diclofenac 1% 100 GM GEL TP SCH ×2 (09:24→14:56)
[2022-05-10] MEDS: Senokot S 8.6-50 MG TAB PO SCH (09:25)
[2022-05-10] MEDS: Polyethylene Glycol 3350 17 GM Packet PO SCH (09:25)
[2022-05-10] MEDS: Docusate 100 MG CAP PO SCH (09:25)
[2022-05-10] MEDS: Lidocaine 5% Patch TD SCH (09:25)
== END 2022-05-10 16:00 | DRG 871 ==
LOC: ERS 07:19 → ERHOLD 09:59 → 2NO 12:27 → T4-A 04-27 14:16
PROVIDERS: ADMIT Internal Medicine; ATTEND Hospitalist
PROC: 3E03329 Introduction of Other Anti-infective into Peripheral Vein, Percutaneous Approach (ICD-10-PCS; 2022-04-23)
PROC: 0T9B70Z Drainage of Bladder with Drainage Device, Via Natural or Artificial Opening (ICD-10-PCS; principal; 2022-05-09)
DX: A41.9 Sepsis, unspecified organism (principal); G92.8 Other toxic encephalopathy; L03.114 Cellulitis of left upper limb; H33.20 Serous retinal detachment, unspecified eye; N13.30 Unspecified hydronephrosis; R65.20 Severe sepsis without septic shock; E86.0 Dehydration; M19.90 Unspecified osteoarthritis, unspecified site; E83.39 Other disorders of phosphorus metabolism; W19.XXXA Unspecified fall, initial encounter; K80.20 Calculus of gallbladder without cholecystitis without obstruction; M10.9 Gout, unspecified; T79.6XXA Traumatic ischemia of muscle, initial encounter; J44.9 Chronic obstructive pulmonary disease, unspecified; R00.1 Bradycardia, unspecified; R33.9 Retention of urine, unspecified; Z20.822 Contact with and (suspected) exposure to COVID-19; Z90.710 Acquired absence of both cervix and uterus; Z88.5 Allergy status to narcotic agent; Z88.2 Allergy status to sulfonamides; Z91.040 Latex allergy status; Z79.899 Other long term (current) drug therapy; Z98.890 Other specified postprocedural states; Y92.009 Unspecified place in unspecified non-institutional (private) residence as the place of occurrence of the external cause
CPT/HCPCS: 36415; 70450; 72170; 74018; 74176; 76705; 80048; 80053; 80202; 81003; 81015; 82550; 82607; 82746; 83605; 83735; 84100; 84443; 84484; 84550; 85025; 85610; 85652; 85730; 86140; 86141; 87040; 87086; 90471; 90715; 93005; 93010; 96365; 96375; J1644; J1650; J1956; J2543; J3370; J3411; J3475; J3480; J3490; J7042; J7050; Q9963; Q9967; U0003; U0005